=== PATIENT | male | born 1965 ===

== ENCOUNTER 2016-08-22 13:02 | Emergency (ER) | payer MEDICAID ==
[2016-08-22] MEDS ORDERED: Sodium Chloride 0.9% 1,000 ML IV ONE ×2 (13:25→15:42)
[2016-08-22] MEDS: Albuterol-Ipratrop 3 mg / 0.5 (3 ml) UD IH SCH ×2 (13:30→13:45)
--- NOTE | 2016-08-22 13:31 | C.PDOC ---
History Of Present Illness The patient, a 51 y/o male, presents to the ED for evaluation of generalized body aches, headache, and cough which began a couple days ago. Patient denies nausea, vomiting. Time Seen by Provider: 08/22/16 13:17 Chief Complaint (Nursing): Flu-like Symptoms History Per: Patient History/Exam Limitations: no limitations Onset/Duration Of Symptoms: Days Current Symptoms Are (Timing): Still Present Location Of Pain: Diffuse Myalgias, Headache Associated Symptoms: Cough. denies: Nausea, Vomiting Ear Symptoms: Bilateral: None Additional History Per: Patient Past Medical History Reviewed: Historical Data, Nursing Documentation, Vital Signs Vital Signs: Last Vital Signs Temp 98.9 F 08/22/16 16:47 Pulse 94 H 08/22/16 16:47 Resp 20 08/22/16 16:47 BP 149/92 H 08/22/16 16:47 Pulse Ox 97 08/22/16 16:54 - Medical History PMH: No Chronic Diseases Surgical History: No Surg Hx Family History: States: Unknown Family Hx - Social History Hx Alcohol Use: Yes Hx Substance Use: No - Immunization History Hx Tetanus Toxoid Vaccination: No Hx Influenza Vaccination: No Hx Pneumococcal Vaccination: No Review Of Systems Except As Marked, All Systems Reviewed And Found Negative. Respiratory: Positive for: Cough Gastrointestinal: Negative for: Nausea, Vomiting Musculoskeletal: Positive for: Other (generalized body aches ) Neurological: Positive for: Headache Physical Exam - Physical Exam Appears: Non-toxic, Other (mild distress due to pain ) Skin: Normal Color, Warm, Dry Head: Atraumatic, Normacephalic Eye(s): bilateral: Normal Inspection, PERRL, EOMI Ear(s): Bilateral: Normal Nose: Normal, No Discharge Oral Mucosa: Moist Throat: Normal, No Erythema, No Exudate Neck: Normal ROM, Supple Chest: Symmetrical, No Deformity, No Tenderness Cardiovascular: Rhythm Regular, No Murmur Respiratory: Normal Breath Sounds, No Rales, No Rhonchi, No Wheezing Gastrointestinal/Abdominal: Soft, No Tenderness, No Guarding, No Rebound Back: Normal Inspection, No Vertebral Tenderness, No Paraspinal Tenderness Extremity: Normal ROM, Capillary Refill (less than 2 seconds) Neurological/Psych: Oriented x3, Normal Speech, Normal Cognition Gait: Steady ED Course And Treatment - Laboratory Results Result Diagrams: 08/22/16 13:52 08/22/16 13:52 Lab Interpretation: No Acute Changes O2 Sat by Pulse Oximetry: 97 (on RA) Pulse Ox Interpretation: Normal - Radiology CXR: Interpreted by Me CXR Interpretation: Yes: Infiltrates - Other Rad CXR X-Ray: Viewed By Me, Read By Radiologist Interpretation: HISTORY: SOB. COMPARISON: No prior. TECHNIQUE: Chest PA and lateral. FINDINGS: LUNGS: There is right lower lobe infiltrate suspicious for pneumonia. PLEURA: No significant pleural effusion identified. No pneumothorax apparent. CARDIOVASCULAR: Normal. OSSEOUS STRUCTURES: No significant abnormalities. VISUALIZED UPPER ABDOMEN: Normal. OTHER FINDINGS: None. IMPRESSION: Right lower lobe infiltrate suspicious for pneumonia. Follow-up study after treatment is recommended. Progress Note: labs and CXR ordered and reviewed. Patient received Albuterol INH , Toradol IV, and IV Fluids. Treated with Rocephin 1 gm IV and zithromax 500 mg IV. On re-evaluation feeling better, lungs clear. Treated with tylenol 650 mg PO and additional NSS. On re-evaluation lungs clear. requesting discharge Reassessment Condition: Improved Disposition Counseled Patient/Family Regarding: Studies Performed, Diagnosis, Need For Followup, Rx Given - Disposition Referrals: [facility] [Outside] [facility] [Outside] Disposition: HOME/ ROUTINE Disposition Time: 17:00 Condition: IMPROVED Additional Instructions: Follow up at Clinic in 2 days Return to ED if any increase symptoms Prescriptions: Albuterol HFA [Ventolin HFA 90 mcg/actuation (8 g)] 2 puff IH [id number] PRN #1 unit PRN Reason: Cough Azithromycin [Zithromax] 250 mg PO DAILY #4 tab Instructions: Pneumonia (ED) Print Language: VINCENTIAN - POA Present On Arrival: None - Clinical Impression Clinical Impression: Pneumonia - PA / COMMUNICATIONS MARKETING INTERN / Resident Statement MD/DO has reviewed & agrees with the documentation as recorded. - Scribe Statement The provider has reviewed the documentation as recorded by the Scribe (Jessica Cassidy) All medical record entries made by the Scribe were at my direction and personally dictated by me. I have reviewed the chart and agree that the record accurately reflects my personal performance of the history, physical exam, medical decision making, and the department course for this patient. I have also personally directed, reviewed, and agree with the discharge instructions and disposition.
[2016-08-22] MEDS ORDERED: Sodium Chloride 0.9% 1,000 ML ONE ×2 (13:39→16:00)
[2016-08-22 13:57] LABS: BASO % 0.2 % (0.0-2.0); HEMATOCRIT 40.1 % (35.0-51.0); LYMPH # 0.7 K/uL (1.0-4.3); LYMPH % 7.3 % (20.0-40.0); MEAN CELL VOLUME 85.8 fL (80.0-94.0); MEAN CORPUSCULAR HEMOGLOBIN 28.6 pg (27.0-31.0); MEAN CORPUSCULAR HGB CONC 33.4 g/dL (33.0-37.0); MEAN PLATELET VOLUME 9.7 fL (7.2-11.7); MONO # 0.8 K/uL (0.0-0.8); MONO % 8.3 % (0.0-10.0); PLATELET COUNT 148 K/uL (130-400); RED CELL DISTRIBUTION WIDTH 12.9 % (11.5-14.5); WHITE BLOOD COUNT 9.1 K/uL (4.8-10.8)
[2016-08-22] MEDS ORDERED: Albuterol-Ipratrop 3 mg / 0.5 (3 ml) UD ONE (14:00)
[2016-08-22 14:10] LABS: CHLORIDE 90 mmol/L (98-107)
[2016-08-22 14:11] LABS: POTASSIUM 3.4 mmol/L (3.6-5.2); SODIUM 132 mmol/L (132-148)
[2016-08-22 14:13] LABS: ALB/GLOB RATIO 1.1 (1.0-2.1); ALKALINE PHOSPHATASE 82 U/L (38-126); ALT/SGPT 22 U/L (21-72); AST/SGOT 23 U/L (17-59); BILIRUBIN,TOTAL 0.4 mg/dL (0.2-1.3); BLOOD UREA NITROGEN 10 mg/dL (9-20); CALCIUM 8.7 mg/dl (8.6-10.4); CARBON DIOXIDE 27 mmol/L (22-30); GFR AFRICAN-AMERICAN > 60; GLUCOSE,RANDOM 126 mg/dL (75-110); TOTAL PROTEIN 7.4 g/dL (6.3-8.3)
[2016-08-22 14:15] LABS: NEUTROPHIL 79 % (50-75); TOTAL CELLS COUNTED 100
[2016-08-22 14:49] LABS: RBC URINE 1 /hpf (0-3); URINE BACTERIA RARE (<OCC); URINE BILIRUBIN NEGATIVE (NEGATIVE); URINE BLOOD 1+ (NEGATIVE); URINE COLOR Yellow (YELLOW); URINE GLUCOSE (UA) NORMAL (Normal); URINE KETONE NEGATIVE (NEGATIVE); URINE LEUKOCYTE ESTERASE NEG Leu/uL (Negative); URINE PROTEIN 2+ mg/dL (NEGATIVE); WBC URINE 2 /hpf (0-5)
--- NOTE | 2016-08-22 15:29 | RAD ---
HISTORY: SOB COMPARISON: No prior. TECHNIQUE: Chest PA and lateral FINDINGS: LUNGS: There is right lower lobe infiltrate suspicious for pneumonia. PLEURA: No significant pleural effusion identified. No pneumothorax apparent. CARDIOVASCULAR: Normal. OSSEOUS STRUCTURES: No significant abnormalities. VISUALIZED UPPER ABDOMEN: Normal. OTHER FINDINGS: None. IMPRESSION: Right lower lobe infiltrate suspicious for pneumonia. Follow-up study after treatment is recommended.
[2016-08-22] MEDS ORDERED: cefTRIAXone IV 1 gm in Dextros 50 ML IV ONE (15:39)
[2016-08-22] MEDS ORDERED: Azithromycin 500mg/250ML NS 250 ML IV SCH (15:45)
[2016-08-22] MEDS ORDERED: cefTRIAXone IV 1 gm in Dextros 50 ML IVPB ONE (16:00)
[2016-08-22] MEDS ORDERED: Azithromycin 500mg/250ML NS 250 ML IVPB ONE (16:00)
[2016-08-22 16:54] VITALS: O2SAT 97
[2016-08-22 17:56] VITALS: BP 146/90; PULSE 85; RESP 17; TEMP 98
== END 2016-08-22 18:43 | disposition home or self-care (01) ==
LOC: C.ER 13:02
DX: J18.9 Pneumonia, unspecified organism (principal)
CPT/HCPCS: 71020; 80053; 81001; 83690; 85025; 87804; 94150; 94640; 96361; 96365; 96367; 96375; 99285; J0456; J0696; J1885; J7040

== ENCOUNTER 2017-11-10 13:35 | Emergency (ER) | payer MEDICAID ==
[2017-11-10 14:13] VITALS: RESP 18; TEMP 98.7; O2SAT 100
--- NOTE | 2017-11-10 15:19 | C.PDOC ---
History Of Present Illness 52 y/o male c/o 3 weeks of mouth pain that radiates to right ear after having dental work done (tooth pulled) and injections in mouth. pt taking otc meds at with no relief. pt has not gone back to dentist. no fevers. Time Seen by Provider: 11/10/17 14:20 Chief Complaint (Nursing): ENT Problem History Per: Patient History/Exam Limitations: None Onset/Duration Of Symptoms: Days (21) Current Symptoms Are (Timing): Still Present Quality (Mouth/Throat): Tenderness Symptoms Have Been: Continuous Anticoagulant/Antiplatlet Use?: No Past Medical History Reviewed: Historical Data, Nursing Documentation, Vital Signs Vital Signs: Last Vital Signs Temp 98.7 F 11/10/17 14:10 Pulse 64 11/10/17 15:27 Resp 18 11/10/17 15:27 BP 151/93 H 11/10/17 15:27 Pulse Ox 100 11/10/17 15:27 - Medical History PMH: No Chronic Diseases Family History: States: Unknown Family Hx - Social History Hx Alcohol Use: Yes Hx Substance Use: No - Immunization History Hx Tetanus Toxoid Vaccination: No Hx Influenza Vaccination: No Hx Pneumococcal Vaccination: No Review Of Systems Constitutional: Negative for: Fever, Chills ENT: Positive for: Ear Pain, Mouth Pain. Negative for: Ear Discharge, Nose Discharge, Throat Pain, Throat Swelling Cardiovascular: Negative for: Chest Pain Respiratory: Negative for: Cough, Shortness of Breath Neurological: Negative for: Weakness, Numbness Physical Exam - Physical Exam Appears: Non-toxic, No Acute Distress Skin: Warm, Dry Head: Atraumatic, Normacephalic Eye(s): bilateral: Normal Inspection Ear(s): Bilateral: Normal Nose: Normal Oral Mucosa: Moist Tongue: Normal Appearing Lips: Normal Appearing Teeth: Other (partly edentulous; no gum swelling noted, tender to gum at posterior most corner lower. ) Gingiva: Normal Appearing, No Erythema, No Ulceration, No Swelling, No Bleeding Neck: Supple ED Course And Treatment O2 Sat by Pulse Oximetry: 100 Medical Decision Making Medical Decision Making: pt with mouth and ear pain x 3 weeks s/p dental extraction; tender to gum in rearmost area; ears with no sign of infection. d/c home with dental f/u Disposition Counseled Patient/Family Regarding: Diagnosis, Need For Followup, Rx Given - Disposition Disposition: HOME/ ROUTINE Disposition Time: 15:18 Condition: GOOD Additional Instructions: Por favor, tome medicamentos para el dolor segn lo prescrito, con alimentos. Llame a bronson dentista que realiz el procedimiento hace 3 semanas para aries hira de seguimiento. Please take medication for pain as prescribed, with food. Please call your dentist who did procedure 3 weeks ago for a follow up appointment. Prescriptions: Ibuprofen [Motrin] 600 mg PO TID #30 tab Forms: Gen Discharge Inst [place], [facility], [employer] (Sami), [employer] (Indonesian), Work Excuse Print Language: ALGERIAN - Clinical Impression Clinical Impression: Oral pain
[2017-11-10 15:28] VITALS: BP 151/93; PULSE 64
== END 2017-11-10 15:28 | disposition home or self-care (01) ==
LOC: C.ER 13:35
DX: K13.79 Other lesions of oral mucosa (principal)
CPT/HCPCS: 96372; 99283; J1885

== ENCOUNTER 2018-10-03 12:27 | Emergency (ER) | payer MEDICAID ==
[2018-10-03 12:53] VITALS: O2SAT 98
--- NOTE | 2018-10-03 14:02 | C.PDOC ---
History Of Present Illness 53 y/o male presents to the ER complaining of mild right ankle pain which has been present for the past 3 days. Patient states that the pain began after he twisted his ankle. Patient reports that the pain is worse with walking and alleviated at rest. He notes that he applied Bengay to the area. He states that he has difficulty walking so he has not been able to work.Denies having head injury, LOC, falls, and wounds sustained. Time Seen by Provider: 10/03/18 13:28 Chief Complaint (Nursing): Lower Extremity Problem/Injury History Per: Patient History/Exam Limitations: no limitations Onset/Duration Of Symptoms: Days Current Symptoms Are (Timing): Still Present Severity: Moderate - Ankle/Foot Description Of Injury: Twisted (right ankle) Past Medical History Reviewed: Historical Data, Nursing Documentation, Vital Signs Vital Signs: Last Vital Signs Temp 99.0 F 10/03/18 12:49 Pulse 72 10/03/18 12:49 Resp 16 10/03/18 12:49 BP Pulse Ox 98 10/03/18 12:49 Primary Care Provider: FAMILY PROVIDER,NO - Medical History PMH: No Chronic Diseases Surgical History: No Surg Hx Family History: States: No Known Family Hx - Social History Hx Alcohol Use: No Hx Substance Use: No - Immunization History Hx Tetanus Toxoid Vaccination: No Hx Influenza Vaccination: No Hx Pneumococcal Vaccination: No Review Of Systems Except As Marked, All Systems Reviewed And Found Negative. Musculoskeletal: Positive for: Other (right ankle pain) Neurological: Negative for: Weakness, Numbness Physical Exam - Physical Exam Appears: Non-toxic, No Acute Distress Skin: Normal Color, Warm, Dry, No Ecchymosis (right ankle and foot) Head: Atraumatic, Normacephalic Eye(s): bilateral: Normal Inspection Extremity: Normal ROM, Tenderness (tenderness to right medial malleolus), No Calf Tenderness, Capillary Refill (< 2 second), No Deformity, No Swelling, Other (right achilles tendon intact) Pulses: Left Dorsalis Pedis: Normal, Right Dorsalis Pedis: Normal Neurological/Psych: Oriented x3, Normal Speech, Normal Motor, Normal Sensation ED Course And Treatment O2 Sat by Pulse Oximetry: 98 (RA) Pulse Ox Interpretation: Normal - Other Rad XRAY ANKLE RIGHT Interpretation: No fracture or dislocation XRAY RIGHT ANKLE X-Ray: Read By Radiologist Interpretation: Accession No. : [id number]. Patient Name / ID : SUNIL BURROWS / [id number]. Exam Date : 10/03/2018 12:49:02 ( Approved ). Study Comment : Sex / Age : M / [id number]. Creator : Kaylene Ramos MD. Dictator : Kaylene Ramos MD. Helpdesk Analyst : Vice President Media Relations : Kaylene Ramos MD. Approver2 : Report Date : 10/03/2018 13:15:09. My Comment : . PROCEDURE: Right Hand Radiographs. Three views. HISTORY: hand injury. COMPARISON: None available. FINDINGS: BONES: No acute displaced fracture. JOINTS: No dislocation. SOFT TISSUES: Unremarkable. No evidence of radiopaque foreign body. OTHER FINDINGS: None. IMPRESSION: No acute displaced fracture, dislocation, or significant joint effusion identified. If symptoms persist, or if there is continued clinical concern, x-ray follow-up in 7-10 days should be considered. Medical Decision Making Medical Decision Making: Xray of ankle ordered. Patient updated on all results. Advised of xray findings. Will apply alexandria wrap and air cast to the right ankle. Instructed on RICE treatment of orthopedic injury. Advised to follow-up with PMD and orthopedist. 53yo male s/p twisting of the right ankle a few days ago. Xrays negative for fracture, will treat for sprain. Distal neurovascular function intact. Disposition Counseled Patient/Family Regarding: Studies Performed, Diagnosis - Disposition Referrals: at [facility] [Outside] Orthopedic Clinic at [Outside] Disposition: HOME/ ROUTINE Disposition Time: 14:14 Condition: STABLE Additional Instructions: Follow-up with your doctor and orthopedist. Wear splint. Ice and elevate your leg. Rest your leg. Return if symptoms worsen or persist. 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 - Scribe Statement The provider has reviewed the documentation as recorded by the Scribe Laurita Chan Provider Attestation All medical record entries made by the Scribe were at my direction and personally dictated by me. I have reviewed the chart and agree that the record accurately reflects my personal performance of the history, physical exam, medical decision making, and the department course for this patient. I have also personally directed, reviewed, and agree with the discharge instructions and disposition.
[2018-10-03 14:43] VITALS: BP 126/80; PULSE 63; RESP 18; TEMP 98.9
--- NOTE | 2018-10-03 16:17 | RAD ---
Date of service: 10/03/2018 PROCEDURE: Right Ankle Radiographs. HISTORY: ankle injury COMPARISON: None available. TECHNIQUE: 3 views obtained. FINDINGS: BONES: Corticated ossific density adjacent to the posterior malleolus of the tibia, possibly an old ununited fracture fragment. No evidence of acute fracture. JOINTS: Normal. No osteoarthritis. Ankle mortise maintained. Talar dome intact SOFT TISSUES: Normal. OTHER FINDINGS: None. IMPRESSION: No acute fracture.
== END 2018-10-03 14:52 | disposition home or self-care (01) ==
LOC: C.ER 12:27
DX: M25.571 Pain in right ankle and joints of right foot (principal)